=== PATIENT | female | born 1965 | race Caucasian/White ===

== ENCOUNTER 2019-07-01 15:15 | Emergency (ER) | payer SELFPAY ==
[~2019-07-01] VITALS: Ht 152.4 cm; Wt 96.3 kg
[~2019-07-01 15:15] MED LIST: CHLO25CA10 PO; GABA-530 PO; NO HOME MEDS; ONDA4TAB6 PO; ONDA8TAB9 PO
[2019-07-01 15:58] LABS: BASOPHILS # (AUTO) 0.1 X10'3 (0-0.2); BASOPHILS % (AUTO) 0.9 % (0-1); EOSINOPHILS % (AUTO) 0.5 % (0-6); HEMATOCRIT 38.7 % (35.0-45.0); LYMPHOCYTES # (AUTO) 1.2 X10'3 (1.1-4.8); LYMPHOCYTES % (AUTO) 18.4 % (21-51); MEAN CORPUSCULAR HEMOGLOBIN 28.6 PG (27.0-31.0); MEAN CORPUSCULAR HGB CONC 33.7 g/dL (33.0-36.5); MEAN CORPUSCULAR VOLUME 84.8 FL (78-98); MEAN PLATELET VOLUME 8.1 FL (7.4-10.4); MONOCYTES # (AUTO) 0.5 X10'3 (0-0.9); MONOCYTES % (AUTO) 8.1 % (2-12); NEUTROPHILS # (AUTO) 4.8 X10'3 (1.8-7.7); NEUTROPHILS % (AUTO) 72.1 % (42-75); PLATELET COUNT 286 X10'3 (140-440); RED BLOOD COUNT 4.57 X10'6 (4.20-5.60); RED CELL DISTRIBUTION WIDTH 14.7 % (11.5-14.5); WHITE BLOOD COUNT 6.6 X10'3 (4.5-11.0)
[2019-07-01 15:59] LABS: CLARITY,URINE SLIGHTLY CLOUDY (Clear); COLOR,URINE YELLOW (Yellow); GLUCOSE, URINE NEGATIVE (Neg); KETONES,URINE 40 mg/dl (Neg); LEUKOCYTE ESTERASE ,URINE NEGATIVE (Neg); NITRITES, URINE NEGATIVE (Neg); OCCULT BLOOD,URINE TRACE-INTACT (Neg); PROTEIN,URINE NEGATIVE (Neg); URINE HCG NEGATIVE (NEG); UROBILINOGEN,URINE 0.2 E.U/dL (0.2-1.0)
[2019-07-01 16:01] LABS: UA COLLECTION TYPE CLN CATCH MIDSTREAM
[2019-07-01 16:05] LABS: BACTERIA,URINE FEW /HPF (Neg); MUCUS STRANDS NONE SEEN /LPF (Neg); SQUAMOUS EPITHELIAL CELL,UR FEW /LPF (FEW); WBC,URINE 0-4 /HPF (0-4)
[2019-07-01 16:12] LABS: ALANINE AMINOTRANSFERASE 23 U/L (12-78); ALBUMIN 4.1 G/DL (3.4-5.0); ALBUMIN/GLOBULIN RATIO 1.2 (1.1-1.5); ALKALINE PHOSPHATASE 60 IU/L (46-116); ANION GAP 9 (8-16); ASPARTATE AMINO TRANSFERASE 8 U/L (10-37); BILIRUBIN,TOTAL 0.3 MG/DL (0.1-1.0); BLOOD UREA NITROGEN 17 MG/DL (7-18); BUN/CREATININE RATIO 22.7 (6.6-38.0); CALCIUM 8.9 MG/DL (8.5-10.1); CHLORIDE 104 MMOL/L (99-107); CREATININE 0.75 MG/DL (0.40-0.90); GLUCOSE 89 MG/DL (70-104); LIPASE 116 U/L (73-393); POTASSIUM 3.9 MMOL/L (3.5-5.1); SODIUM 139 MMOL/L (135-145); TOTAL CARBON DIOXIDE 25.7 MMOL/L (24-32); TOTAL PROTEIN 7.4 G/DL (6.4-8.2); eGFR 81 ML/MIN
[2019-07-01] MEDS: acetaminophen 325mg tablet PO ONE (17:27)
[2019-07-01] MEDS ORDERED: TRAM50TA2 PO (17:49)
[2019-07-01 17:56] VITALS: BP 127/77
== END 2019-07-01 17:57 | disposition home or self-care (01) ==
LOC: ER 15:16
DX: K43.9 Ventral hernia without obstruction or gangrene (principal); R10.33 Periumbilical pain; R10.13 Epigastric pain; F15.90 Other stimulant use, unspecified, uncomplicated; Z98.890 Other specified postprocedural states
CPT/HCPCS: 36415; 74176; 76705; 80053; 81001; 81025; 83690; 85025; 99284

== ENCOUNTER → 2025-03-18 | Emergency (ER) | payer MEDICAID ==
[~2025-03-18] VITALS: Ht 152.4 cm; Wt 59.6 kg
[2025-03-18 10:49] VITALS: BP 124/80; PULSE 111; RESP 18; TEMP 98.7; O2SAT 96
--- NOTE | 2025-03-18 12:29 | Physician Documentation ---
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 Patient states her use of Pyridium has gotten out of control and she is having withdrawal symptoms including GI upset nausea vomiting diarrhea sweat ing. Patient has no other concern or complaint at this time. Medication Reconciliation Allergies: Coded Allergies: No Known Allergies (Unverified , 03/18/25) Scheduled Chlordiazepoxide Hcl (Librium), 25 MG PO DIRECTED Chlordiazepoxide Hcl (Librium), 25 MG PO DIRECTED Gabapentin (Gabapentin), 1 CAP PO Q8H Ondansetron (Zofran Odt), 4 MG PO QID Scheduled PRN Chlordiazepoxide Hcl (Librium), 25 MG PO TID PRN PRN for alcohol withdrawal Chlordiazepoxide Hcl (Librium), 25 MG PO A PRN for alcohol withdrawal Ondansetron Hcl (Zofran), 1 TAB PO Q6H PRN for nausea Miscellaneous Medications Home Med List (No Home Medications), (Reported) Past Medical History Past Medical History: Renal Disease Past Surgical History: Patient History: (COPD) Chronic obstructive lung disease MOTHER, Name: Rebecca , Born [birth year]49, Age: 75, Not a twin, Race: WHITE, Onset:Unknown (Cancer) Malignant carcinoid tumor MOTHER, Name: Rebecca , Born [birth year], Age: 75, Not a twin, Race: WHITE, Onset:50's - 60 No health history CHILD, Name: Clarissa , Born 08/20/94, Age: 30, Not a twin, Race: WHITE, Onset:Infancy Alcohol Use: None Drug Use: methamphetamine Lives In: Home Occupation: employed Review of Systems Constitutional: Denies: chills, fever, weakness Eyes: Denies: pain, blurred vision ENT: Denies: ear pain, nose pain, throat pain, mouth pain Respiratory: Denies: cough, shortness of breath Cardiovascular: Denies: chest pain, palpitations Gastrointestinal: Denies: abdominal pain, nausea, vomiting Genitourinary: Denies: burning, dysuria Female Genitalia: Denies: vaginal discharge, pelvic pain Neurological: Denies: headache, dizziness Musculoskeletal: Denies: pain, swelling Integumentary: Denies: rash, lesions Allergic/Immunologic: Denies: hives, itching Hematologic/Lymphatic: Denies: no symptoms reported Psychiatric: Denies: depression, anxiety Physical Exam Vital Signs: Temperature: 98.7, Source: Oral, Heart Rate: 111, Respiratory Rate: 18, BP: 124/80, Pulse Oximetry: 96, Weight: 59.600 Oxygen Flow Rate: 0 Physical Exam General: Awake and Alert, no acute distress. Patient appears to be in mild opiate withdrawal. HEENT: Conjunctiva pink, Sclera clear, Mucus Membranes moist. Neck: Supple without masses and tenderness. Resp: Unlabored. Lungs clear to auscultation bilaterally. Heart: Regular Rate and rhythm, normal S1 and S2 without murmur, rub or gallop. Abdomen: Soft and non tender no organomegaly Extremities: No cyanosis,clubbing or edema. Skin: Warm and Dry. 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 Patient states her use of Pyridium has gotten out of control and she is having withdrawal symptoms including GI upset nausea vomiting diarrhea sweating. Patient has no other concern or complaint at this time. Patient unfortunately left prior to further exam and treatment with Suboxone or any bridge program discussion. Patient will return to ED with any worsening, concerning or changing symptoms. Departure Disposition: LEFT AWOL/ELOPED Impression: Primary Impression: Narcotic drug use Additional Impression: Opiate withdrawal Condition: Fair Discharge Instructions: Narcotic Withdrawal Additional Instructions: Patient unfortunately left prior to further exam and treatment with Suboxone or any bridge program discussion. Patient will return to ED with any worsening, concerning or changing symptoms. Referrals: NO PRIMARY CARE PROVIDER (PCP) Signature Scribe Signature: No scribe Attestation: No scribe YULI LUCIO PAC Mar 18, 2025 12:29
== END | disposition home or self-care (01) ==
LOC: ER 10:33
DX: F11.23 Opioid dependence with withdrawal (principal); F15.90 Other stimulant use, unspecified, uncomplicated; J44.9 Chronic obstructive pulmonary disease, unspecified; Z79.899 Other long term (current) drug therapy
CPT/HCPCS: 99282